=== PATIENT | female | born 1985 | race African-American/Black ===

== ENCOUNTER 2016-10-20 10:02 | Emergency (ER) | payer OTHER ==
[~2016-10-20] VITALS: Ht 160 cm; Wt 57.0 kg
[2016-10-20 10:05] VITALS: BP 142/88; PULSE 90; RESP 18; TEMP 97.9; O2SAT 100
--- NOTE | 2016-10-20 10:45 | PD ---
HPI Chief Complaint: OD/ Ingestion Time Seen by Provider: 10:35 Travel History International Travel<30 days: No Contact w/Intl Traveler<30days: No Traveled to known affect area: No History of Present Illness HPI 31yo F with no PMH presents to the ED for evaluation after she inhaled ammonium hydroxide at work at 9:50am today. 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 States she felt her left ear pop and just felt funny. Denies any sob, chest pain, n/v, abdominal pain, focal weakness or numbness. PFSH Past Medical History Medical History: Denies Significant Hx ?: Not Past Surgical History Eye Surgery: Yes Social History Alcohol Use: No Tobacco Use: No Substance Use: No Allergies-Medications (Allergen,Severity, Reaction): Coded Allergies: No Known Allergies (Verified , 10/20/16) Reported Meds & Prescriptions Reported Meds & Active Scripts Active No Active Prescriptions or Reported Medications Review of Systems Except as stated in HPI: all other systems reviewed are Neg Physical Exam Narrative GENERAL: 31yo F not in distress. SKIN: Focused skin assessment warm/dry. HEAD: Atraumatic. Normocephalic. EYES: Pupils equal and round. No scleral icterus. No injection or drainage. ENT: Throat: Clear. TM wnl bilaterally. NECK: Trachea midline. No JVD. CARDIOVASCULAR: Regular rate and rhythm. No murmur appreciated. RESPIRATORY: No accessory muscle use. Clear to auscultation. Breath sounds equal bilaterally. No stridor. GASTROINTESTINAL: Abdomen soft, non-tender, nondistended. MUSCULOSKELETAL: No obvious deformities. No clubbing. No cyanosis. No edema. NEUROLOGICAL: Awake and alert. No obvious cranial nerve deficits. Motor grossly within normal limits. Normal speech. PSYCHIATRIC: Appropriate mood and affect; insight and judgment normal. Data Data Last Documented VS Vital Signs Date Time Temp Pulse Resp B/P Pulse Ox O2 Delivery O2 Flow Rate FiO2 10/20/16 11:13 85 18 132/74 100 10/20/16 10:05 97.9 [facility] Medical Decision Making Medical Screen Exam Complete: Yes Emergency Medical Condition: Yes Differential Diagnosis Exposure to ammonium hydroxide Narrative Course 31yo F here for evaluation after she accidentally inhaled ammonium hydroxide. Poison control was called and they recommend supportive treatment and observed for 1-2 hours for any respiratory symptoms including stridor. Pt has been observed in the ED with no symptoms. Return precautions given. Diagnosis Primary Impression: Exposure to chemical inhalation Patient Instructions: General Instructions Departure Forms: Tests/Procedures Additional Instructions: Please return to the ED if symptoms worsen. Med/Other Pt SpecificInfo: No Change to Meds Scripts No Active Prescriptions or Reported Meds Disposition: 01 DISCHARGE HOME Condition: Stable Kathy Eckert DO Oct 20, 2016 10:45
[2016-10-20 11:13] VITALS: BP 132/74; PULSE 85; RESP 18; O2SAT 100
== END 2016-10-20 12:07 | disposition home or self-care (01) ==
LOC: NEPD 10:02
DX: T59.891A Toxic effect of other specified gases, fumes and vapors, accidental (unintentional), initial encounter (principal)
CPT/HCPCS: 99281